=== PATIENT | female | born 1985 | race Caucasian/White ===

== ENCOUNTER → 2019-06-26 09:36 | Outpatient (CLI) | payer BC, SELFPAY ==
--- NOTE | 2019-06-26 | DI.US.S_ITS ---
PROCEDURE: US OB >= 14 WEEKS FETUS INDICATIONS: 20 WEEK ANATOMICAL SURVEY OUTSIDE/PRIOR DATING DATA: Last menstrual period (LMP): Not available. LMP-based estimated date of delivery (ROBEL): Not available. First dating scan (date and location): This study. Estimated date of delivery (ROBEL) from first dating scan: 09/21/19. TECHNIQUE: Real-time scanning was performed of the fetus, with image documentation and biometric measurements. Endovaginal scanning: Not needed COMPARISON: None. FINDINGS: General: A single living intrauterine gestation is present. Presentation: Vertex. Placenta: Placental position is posterior, without previa. Amniotic fluid index: 20.9 cm, normal range is 5-24 cm. heart rate: 147 beats per minute. Maternal cervical canal: 3.5 cm long. Normal lower limit is 2.5 cm. biometrics: Biparietal diameter: 6.9 cm, 27 weeks 5 days Head circumference: 25.8 cm, 28 weeks 0 days Abdominal circumference: 23.1 cm, 27 weeks 1 day Femur length: 5.0 cm, 27 weeks 0 days Estimated gestational age from initial scan: not applicable. Composite gestational age from present scan: 27 weeks 4 days Estimated weight: 1073 g Measurement variability for biometric dating: +/- 7 days from 14 weeks to 15 weeks 6 days gestation, +/- 10 days from 16 weeks to 21 weeks 6 days gestation, +/- 2 weeks from 22 weeks to 27 weeks 6 days gestation, +/- 3 weeks for 28 weeks gestation or later. weight reference: 4500 g or EFW >90/95% is considered macrosomia or large for gestational age. EFW <10% is small for gestational age. EFW 5% or less is considered intra-uterine growth restriction. Anatomic survey: Neuro: Ventricles are non-dilated at less than 10 mm. Cisterna magna is normal at 3-11 mm. Cerebellum is normal in size and morphology. Nuchal skin fold: Normal at less than 6 mm between 14-21 weeks gestational age. Face: Nose and lips, facial profile are normal. Spine: No evidence for spina bifida. Heart: 4-chambered heart is present, with normal ventricular outflow tracts. Diaphragm: Diaphragm is intact. Stomach: Left-sided stomach is present. Kidneys: No hydronephrosis. Normal is less than 5 mm in 2nd trimester, less than 7 mm in 3rd trimester. Cord: 3-vessel cord has orthotopic insertion. Bladder: Normal in size. Extremities: All 4 extremities identified. . IMPRESSION: No anomaly seen. Current estimated gestational age is 27 weeks 4 days, with the delivery date projected to be centered on 09/21/19. Dictated by: Akshat Calixto M.D. on 06/26/2019 at 12:23 Approved by: Akshat Calixto M.D. on 06/26/2019 at 12:25
[2019-06-26 12:04] LABS: Hematocrit 33.9 % (36-46); Hemoglobin 11.7 g/dL (12.0-16.0); Mean Corpuscular HGB Conc 34.6 % (30-36); Mean Corpuscular Hemoglobin 33.2 PG (26-34); Mean Corpuscular Volume 96.1 fL (80-100); Platelet Count 192 X10^3/uL (150-400); Red Blood Cell Count 3.53 X10^6/uL (4.0-5.2); Red Cell Distribution Width 12.9 % (11.6-14.8); White Blood Cell Count 8.4 X10^3/uL (4.5-11.0)
[2019-06-26 12:26] LABS: Glucose Fasting 72 mg/dL (70-100)
[2019-06-26 12:28] LABS: Glucose 1 Hour 155 mg/dL (70-170)
[2019-06-26 12:31] LABS: Glucose Tol Interpretation INTERPRETATION
[2019-06-26 14:05] LABS: Glucose 2 Hour 82 mg/dL (70-140)
== END ==
PROVIDERS: Family Provider Nurse Practitioner; PCP Nurse Practitioner; Referring Provider Nurse Practitioner Obstetrics & Gynecology; Visit Provider Nurse Practitioner Obstetrics & Gynecology
DX: Z36.89 Encounter for other specified antenatal screening (principal); Z13.1 Encounter for screening for diabetes mellitus; Z3A.27 27 weeks gestation of pregnancy
CPT/HCPCS: 36415; 76811; 82951; 82952; 85027